=== PATIENT | male | born 1975 | race Caucasian/White ===

== ENCOUNTER 2018-07-31 09:38 | Outpatient (CLI) | payer BC, SELFPAY ==
[2018-07-31 10:13] LABS: HCT 46.3 % (40.0-50.0); HGB 15.7 g/dL (13.5-17.5)
[2018-07-31 11:23] LABS: Glucose 99 mg/dL (70-100); Potassium 4.1 mmol/L (3.5-5.1)
[2018-08-03 09:53] LABS: PSA, Screening 0.4 ng/ml (0-2.5)
== END 2018-07-31 09:58 ==
PROVIDERS: PCP General Practice; Visit Provider General Practice
DX: I10 Essential (primary) hypertension (principal); E04.9 Nontoxic goiter, unspecified; E29.1 Testicular hypofunction; Z12.5 Encounter for screening for malignant neoplasm of prostate
CPT/HCPCS: 36415; 82947; 84153; 82565; 84132; 84443; 85014; 85018

== ENCOUNTER 2019-01-04 12:35 | Outpatient (CLI) | payer BC, SELFPAY ==
[2019-01-04 14:13] LABS: Glucose 120 mg/dL (70-100)
== END 2019-01-04 12:55 ==
PROVIDERS: PCP General Practice; Visit Provider General Practice
DX: R73.03 Prediabetes (principal)
CPT/HCPCS: 36415; 82947

== ENCOUNTER 2019-03-03 08:43 | Outpatient (CLI) | payer BC, SELFPAY ==
[2019-03-03 13:13] LABS: Glucose 109 mg/dL (74-106)
== END 2019-03-03 09:03 ==
PROVIDERS: PCP General Practice; Visit Provider General Practice
DX: R73.03 Prediabetes (principal)
CPT/HCPCS: 36415; 82947

== ENCOUNTER 2019-05-02 16:23 | Emergency (ER) | payer BC, SELFPAY ==
[2019-05-02] VITALS (53 sets, daily range): BP systolic 111–134; BP diastolic 61–68; PULSE 97–119; RESP 16–18; TEMP 37.3–38.1; O2SAT 85–99
--- NOTE | 2019-05-02 16:46 | W.ED.GENAD ---
Discharge Plan Disposition Patient Disposition: [facility] Condition: Serious Discharge Details Chief Complaint: DentalOral Clinical Impression: Shakir's angina Primary Care Provider: Marvin Leyva ED Provider: Emory Wu Home Meds and New Rx's Prescriptions: No Action testosterone cypionate 200 mg/mL kit 200 mg IM Q2W RF: 0 hydrochlorothiazide 25 mg tablet 25 mg PO DAILY RF: 0 lisinopril 40 mg tablet 40 mg PO DAILY RF: 0 atenolol 25 mg tablet 25 mg PO DAILY RF: 0 Medical Decision Making 44-year-old male with a history of hypertension for which he takes lisinopril, atenolol, hydrochlorothiazide. He presents the ER complaining of 2 days of the sub-lingual and submental swelling that is now caused him to have difficulty in fully opening his mouth. He is febrile, mildly tachycardic with a pulse of 120, normal blood pressure. He has soft tissue fullness and edema of the sublingual and submandibular tissues. Concerning for submandibular/hypopharynx space infection including Shakir's angina. IV placed, blood cultures obtained, screening labs obtained, patient given Unasyn, referred for imaging. He does take an CELINA inhibitor and while the presentation seems more consistent with infection, patient also given Solu-Medrol as angioedema is within the differential diagnosis. Patient given fluid bolus and placed on maintenance fluids. He is given acetaminophen IV. Patient's lactate is somewhat elevated at 2.1, white blood cell count is elevated at 17 with left shift present. Chemistries noted sodium 131, potassium 3.7, chloride 93., BUN 18, creatinine 0.9 CT scan shows right mandibular periapical lucency and adjacent 2.1 x 8 cm phlegmon. There is fat stranding of the bilateral submandibular subcutaneous tissues and edema of the submandibular spaces. There is nonspecific asymmetric soft tissue thickening of the right epiglottis. See formal report. I discussed the case with Dr. Kasper of otolaryngology and Dr. Darnell of emergency medicine at [facility]. Patient will be accepted in transfer for urgent evaluation in the emergency department. Patient is protecting his airway and controlling secretions. Do not feel he requires intubation prior to transfer. Discussed indications for transfer with the patient and he is in agreement. Lab Data Lab results reviewed: Yes I reviewed the patient's lab results. Labs: Laboratory Results - last 24 hr 05/02/19 05/02/19 05/02/19 17:00 17:00 17:00 WBC 17.60 H RBC 4.31 L Hgb 14.1 Hct 40.1 MCV 93.0 MCH 32.7 MCHC 35.2 RDW 12.0 Plt Count 282 MPV 8.8 Immature Gran % 0.2 Neutrophils % 81.8 Lymphocytes % 7.7 Monocytes % 10.2 Eosinophils % 0.0 Basophils % 0.1 Absolute Neutrophils 14.40 H Absolute Lymphocytes 1.36 Absolute Monocytes 1.80 H Absolute Eosinophils 0.00 Absolute Basophils 0.02 Differential Comment Agrees w/ instrument RBC Morphology Normal Sodium 131 L Potassium 3.7 Chloride 93 L Carbon Dioxide 27.7 Anion Gap 10.3 BUN 18 Creatinine 0.94 Estimated GFR/1.73 m2 >= 60.00 Glucose 151 H Lactate 2.1 H* Calcium 9.2 Total Bilirubin 1.7 H AST 18 ALT 30 Alkaline Phosphatase 51 Total Protein 8.2 Albumin 3.6 HPI General Mode of arrival: ambulatory. Date/Time Provider Initiated Documentation: 05/02/19 16:24. Limitations to Documentation: no limitations. Information obtained by: patient. History of Present Illness 44 year old M presents to the emergency department with the chief complaint of Sublingual and neck swelling over 2 days, described as moderate, and is localized to the mouth and neck. Patient reports no radiation. Patient started experiencing this day(s) and it has been constant. No relieving factors improve symptom(s), No exacerbating factors reported . Patient notes other (Difficulty opening mouth); denies chest pain and shortness of breath. Patient did receive the following treatments prior to arrival, none Related Data Home Medications Medication Instructions Recorded Confirmed atenolol 25 mg tablet 25 mg PO DAILY 04/30/19 05/02/19 hydrochlorothiazide 25 mg tablet 25 mg PO DAILY 04/30/19 05/02/19 lisinopril 40 mg tablet 40 mg PO DAILY 04/30/19 05/02/19 testosterone cypionate 200 mg/mL 200 mg IM Q2W 04/30/19 05/02/19 intramuscular kit Allergies Allergy/AdvReac Type Severity Reaction Status Date / Time Fish Containing Products Allergy Intermediate Itching Unverified 05/02/19 16:33 General Stated Complaint: DentalOral LIVIA: 2 Review of Systems Narrative: No change to medications. States he has been taking CELINA inhibitor for years. No fever, denies dental pain. 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 Pleasant, well groomed, interactive. HEAD: Normocephalic, atraumatic ENT: Mucous membranes moist, oropharynx with sublingual edema, there is edema of the neck and submental area, External ear exam unremarkable. Patient has a bianchi EYES: PERRL, EOMI NECK: Full ROM, no MICHAEL, no menigismus CHEST/RESP: Nontender, clear to auscultation bilateral, no wheeze/rhonchi/rales CARDIOVASCULAR: Tachycardic, regular, no murmur, rub rob. 2+ Rad pulse bilateral ABDOMEN: Soft, nontender, no mass. +Bowel sounds EXT: Full ROM, no edema, no rash Neuro: Grossly normal neurologic exam, conversant, interactive. Psych: Speech fluent, thoughts congruent, affect normal Course Vital Signs Vital signs: Vital Signs Temperature 37.3 C 05/02/19 16:28 Pulse 119 H 05/02/19 16:28 Respiratory Rate 18 05/02/19 16:28 Blood Pressure 134/61 05/02/19 16:28 Pulse Oximetry 99 05/02/19 16:28 Temperature 37.3 C 05/02/19 16:28 Temperature Source Temporal Artery Scan 05/02/19 16:28 Pulse 119 H 05/02/19 16:28 Respiratory Rate 18 05/02/19 16:28 Respiratory Effort Non-Labored 05/02/19 16:32 Blood Pressure 134/61 05/02/19 16:28 Blood Pressure Position Sitting 05/02/19 16:28 Pulse Oximetry 99 05/02/19 16:28 Oxygen Delivery Method Room Air 05/02/19 16:28 Oxygen Flow Rate 0 05/02/19 16:28
[2019-05-02] MEDS: methylPREDNISolone SUCC 125 MG VIAL IVP (17:00)
[2019-05-02 17:13] LABS: Abs Immature Grans 0.04 k/cumm (0.0-0.09); Absolute Lymphocyte Count 1.36 k/cumm (1.2-3.4); Basophils % 0.1; HCT 40.1 % (40.0-50.0); HGB 14.1 g/dL (13.5-17.5); Immature Grans % 0.2 %; Lactate 2.1 mmol/L (0.6-1.4); Lymphocytes % 7.7; Mean Corp. HGB Concentration 35.2 g/dL (32.0-36.0); Mean Corpuscular Hemoglobin 32.7 pg (27.0-33.0); Mean Platelet Volume 8.8 fL (8.0-11.0); Monocytes % 10.2; Platelet Count 282 x1000/uL (130-400); RBC 4.31 m/cumm (4.50-6.00)
[2019-05-02 17:14] LABS: Absolute Basophil Count 0.02 k/cumm (0.0-0.2)
[2019-05-02 17:31] LABS: ALT 30 U/L (16-63); AST 18 U/L (15-37); Albumin 3.6 g/dL (3.4-5.0); Alkaline Phosphatase 51 U/L (46-116); Anion Gap 10.3 mmol/L (3-11); BUN 18 mg/dL (7-18); Bilirubin, Total 1.7 mg/dL (0.2-1.0); CO2 27.7 mmol/L (21.0-32.0); CREATININE 0.94 mg/dL (0.70-1.30); Calcium 9.2 mg/dL (8.5-10.1); Chloride 93 mmol/L (98-107); Glucose 151 mg/dL (74-106); Potassium 3.7 mmol/L (3.5-5.1); Sodium 131 mmol/L (136-145); Total Protein 8.2 g/dL (6.4-8.2)
[2019-05-02] MEDS: AMPICILLIN/SULBACTAM 3 GM in Normal Saline 100 ML IVPB (17:31)
[2019-05-02] MEDS: Normal Saline 1,000 ML 1000 ML IV (17:32)
--- NOTE | 2019-05-02 17:41 | DI.CT_ITS ---
EXAM: CT NECK W CLINICAL HISTORY: SUBLINGUAL AND NECK SWELLING TECHNIQUE: Post IV contrast COMPARISON: No exams were available for comparison FINDINGS: There is artifact related to dental work. There is mucous retention at the floors of both maxillary sinuses and within several ethmoid sinuses. The mastoid air cells appear clear. The orbits are unre markable where visualized. Parotid glands are unremarkable. There is diffuse edema in the subcutane ous fat in the submandibular region bilaterally. The right submandibular gland appears mildly enlarg ed and edematous compared to the left. There is soft tissue edema seen in the adjacent musculature. There is a lucency surrounding a molar tooth in the right mandible with an adjacent small abscess me asuring 2 cm in greatest dimension. There are reactive lymph nodes. There is thickening of the righ t aryepiglottic fold. There is mild thickening of the epiglottis. Degenerative changes are seen in the spine. IMPRESSION: Abscess involving the posterior right mandibular molar tooth with an adjacent soft tissue abscess radha suring 2 cm in greatest dimension. Reactive lymph nodes and soft tissue edema are present. There is asymmetric thickening of the right aryepiglottic fold.
[2019-05-02 17:44] LABS: Diff Comment Agrees w/ Instrument; Neutrophils % 81.8; RBC Morphology Normal
[2019-05-02] MEDS: Omnipaque 350 MG/ML 100 ML BTL IJ (17:47)
--- NOTE | 2019-05-02 18:17 | DI.VRAD_ITS ---
PROCEDURE INFORMATION: Exam: CT Neck With Contrast Exam date and time: 05/02/2019 5:38 PM Age: 44 years old Clinical indication: Mass, lump, or swelling in neck TECHNIQUE: Imaging protocol: Computed tomography images of the neck with intravenous contrast. COMPARISON: No relevant prior studies available. FINDINGS: Brain: There is a pulmonary parenchymal calcification consistent with remote granulomatous organism exposure. Limited views of the brain are unremarkable. There is mild local mass effect without airway compromise. Sinuses: No organized fluid collection. No significant associated. Bilateral maxillary sinus mucosal thickening. Partial opacification of the ethmoid air cells Nasopharynx: Unremarkable. Oropharynx: Unremarkable. No significant tonsillar enlargement. Hypopharynx/larynx: Nonspecific soft tissue thickening along the right aspect of the epiglottis and extending inferior/posteriorly along the right styloid pharynges muscle without discrete lesion. Retropharyngeal space: Unremarkable. Submandibular/Parotid glands: Nonspecific fat stranding about the bilateral submandibular subcutaneous tissues extending inferiorly along the midline to about the level of the thyroid with trace edema in the bilateral submandibular spaces. Slight asymmetric enlargement of the right submandibular gland is likely reactive. Thyroid: The thyroid gland is normal. Lymph nodes: Scattered bilateral mildly enlarged lymph nodes are likely reactive. Trachea: Visualized trachea is unremarkable. Lungs: Unremarkable as visualized. Dental: Right mandibular molar periapical lucency with medial cortical thinning an adjacent 2.1 x 0.8 cm fluid collection with at least partial peripheral enhancement. Bones/joints: Unremarkable. No acute fracture. Soft tissues: IMPRESSION: 1. Right mandibular periapical lucency with cortical thinning and adjacent 2.1 x 0.8 cm periodontal phlegmon versus developing abscess. 2. Fat stranding about the bilateral submandibular subcutaneous tissues and trace edema in the bilateral submandibular spaces may represent sequela of infection/cellulitis. No organized fluid collection. 3. Nonspecific asymmetric soft tissue thickening the right epiglottis without CT evidence of a discrete lesion. The finding may be related to acute infection, however recommend further evaluation with direct visualization or follow-up imaging after treatment to ensure resolution. Findings discussed with JASON CAPELLAN MD. by Kyrie Winkler MD. of radiology at 05/02/2019 6:15 PM EST Dictated and Authenticated by: Kyrie Winkler MD. Ordering:SIDDHARTH Cat MD
[2019-05-02] MEDS: ACETAMINOPHEN 1,000 MG/100 ML BTL 400 MG IVPB (18:26)
[2019-05-02] MEDS: Normal Saline 1,000 ML 150 ML IV (18:29)
--- NOTE | 2019-05-06 19:46 | ED.FU.B_ITS ---
This evening I received blood culture that was verified 05/04/2019, anaerobic bottle positive, Gram stain shows gram-positive cocci. I called [facility] [place] [place] and spoke with Dr. Grande, on-call ENT, discussed blood culture result, he knew the patient well and reviewed medical record and noted that patient has been treated with IV antibiotic and then transition to oral antibiotic after significant improvement. He does not believe positive culture will private branch exchange service adviser at this time but will reach out to the patient and ensure follow-up.
--- NOTE | 2019-06-15 09:11 | NUR.NOTE ---
Patient transferred treated and discharge prior to final blood culture result. Result faxed to [facility] scanning, and to [facility] beck Leyva. Nursing Note:
== END 2019-05-02 19:35 | disposition short-term general hospital (02) ==
PROVIDERS: Emergency Provider Emergency Medicine; PCP Family Medicine
DX: R50.9 Fever, unspecified (principal); R60.0 Localized edema; R93.0 Abnormal findings on diagnostic imaging of skull and head, not elsewhere classified; K12.2 Cellulitis and abscess of mouth; I10 Essential (primary) hypertension
CPT/HCPCS: 36415; 70491; 80053; 87040; 87077; 96361; 96365; 96366; 96375; 99285; 83605; 85025; J0131; J0295; J2930; J3490

== ENCOUNTER 2019-06-01 09:07 | Outpatient (CLI) | payer BC, SELFPAY ==
[2019-06-01 10:37] LABS: ALT 43 U/L (16-63); AST 22 U/L (15-37); Albumin 3.7 g/dL (3.4-5.0); Alkaline Phosphatase 58 U/L (46-116); Anion Gap 7.8 mmol/L (3-11); BUN 9 mg/dL (7-18); Bilirubin, Total 0.8 mg/dL (0.2-1.0); CO2 29.2 mmol/L (21.0-32.0); CREATININE 0.73 mg/dL (0.70-1.30); Calcium 8.7 mg/dL (8.5-10.1); Calculated LDL 83 mg/dL (<100); Chloride 102 mmol/L (98-107); Cholesterol 175 mg/dL (<200); Glucose 99 mg/dL (74-106); HDL Cholesterol 42 mg/dL (40-60); Sodium 139 mmol/L (136-145); Total Protein 6.9 g/dL (6.4-8.2); Triglyceride 252 mg/dL (<150)
== END 2019-06-01 09:27 ==
PROVIDERS: PCP Family Medicine; Visit Provider Family Medicine
DX: E87.1 Hypo-osmolality and hyponatremia (principal); Z13.220 Encounter for screening for lipoid disorders
CPT/HCPCS: 36415; 80053; 80061

== ENCOUNTER 2020-10-18 13:07 | Emergency (ER) | payer BC, SELFPAY ==
[2020-10-18 13:38] VITALS: BP 135/72; PULSE 77; RESP 16; TEMP 36.2; O2SAT 98
--- NOTE | 2020-10-18 14:34 | ED.GENADUL_ITS ---
Discharge Plan Disposition Patient Disposition: HOME Condition: Good Discharge Details Clinical Impression: Upper respiratory infection Primary Care Provider: Marvin Leyva ED Provider: Zhane Haas Home Meds and New Rx's Prescriptions: New albuterol sulfate 90 mcg/actuation HFA aerosol inhaler 2 puff inhalation 6XD PRNQty: 6.7 RF: 0 Continued hydrochlorothiazide 25 mg tablet 25 mg PO DAILY Qty: 90 RF: 3 lisinopril 40 mg tablet 40 mg PO DAILY Qty: 90 RF: 3 testosterone cypionate 200 mg/mL oil 100 mg IM Q2W Qty: 10 RF: 5 atenolol 25 mg tablet 25 mg PO DAILY Qty: 90 RF: 3 Discharge Instructions Instructions: Upper Respiratory Infection (ED) Additional Instructions: Use your inhaler, 2 puffs every 4-6 hours as needed for cough Robitussin as needed for cough Please follow-up with your doctor in 48 hours Your Covid test should return within the next 36 hours, should you have worsening shortness of breath, fever, chills, or with any new or progressing symptoms, I recommend you return Isolate until results of your Covid test return Stand Alone Forms: PENDING COVID-19 TESTING, Work Release Discharge Data Discharge Date/Time-TO BE ENTERED AT DEPARTURE: 10/18/20 14:37 Medical Decision Making No clinical signs or symptoms consistent with pneumonia, no indication for chest x-ray oxygenation 98% on room air, respirations 16, no fever noted Covid test pending, will isolate Discussed onset of Covid vaccine and encouraged patient to follow-up with PCP Work note supplied Effect upper respiratory infection based clinical exam findings, likely viral at time of my evaluation Supportive care recommended Return precautions discussed patient expressed understanding, with shortness of breath, wheezing, or fever should arise HPI General Mode of arrival: ambulatory . Date/Time Provider Initiated Documentation: 10/18/20 13:55 . Limitations to Documentation: no limitations . Information obtained by: patient . HPI Narrative: This 45-year-old gentleman with history of hypertension presents with report of cough and runny nose. He denies any shortness of breath, wheezing, fever, myalgias, hemoptysis. He states his cough is dry. He states he has had symptoms for the past 2 days. He does not have a Covid vaccine. She denies known sick contacts. He denies any nausea or vomiting. He denies any chest discomfort. He presents because he is supposed to present to work this evening. Denies history of asthma or COPD. Related Data Home Medications Medication Instructions Recorded Confirmed atenolol 25 mg tablet 25 mg PO DAILY #90 tab 07/17/20 10/18/20 hydrochlorothiazide 25 mg tablet 25 mg PO DAILY #90 tab 10/03/20 10/18/20 lisinopril 40 mg tablet 40 mg PO DAILY #90 tab 10/03/20 10/18/20 testosterone cypionate 200 mg/mL 100 mg IM Q2W #10 ml 10/03/20 10/18/20 intramuscular oil albuterol sulfate 2 puff INHALATION 6XD PRN #6.7 g 10/18/20 Previous Rx's Medication Instructions Recorded atenolol 25 mg tablet 25 mg PO DAILY #90 tab 07/17/20 hydrochlorothiazide 25 mg tablet 25 mg PO DAILY #90 tab 10/03/20 lisinopril 40 mg tablet 40 mg PO DAILY #90 tab 10/03/20 testosterone cypionate 200 mg/mL 100 mg IM Q2W #10 ml 10/03/20 intramuscular oil albuterol sulfate 2 puff INHALATION 6XD PRN #6.7 g 10/18/20 Allergies Allergy/AdvReac Type Severity Reaction Status Date / Time Fish Containing Products Allergy Intermediate Itching Verified 10/18/20 13:41 diet sodas AdvReac Mild dry mouth Uncoded 10/18/20 13:41 General Stated Complaint: RespSymp LIVIA: 4 Review of Systems All systems reviewed & are unremarkable except as noted in HPI and below PFSH Medical History (Updated 10/18/20 @ 14:20 by RENEE Roberts) Hypertension [place]ir's [place] [facility] [place]IV abx and tooth extraction) Primary hypogonadism in male Family History (Updated 03/14/20 @ 15:17 by Lyntete Gleason RN) Father Lung cancer Bone cancer Mother Diabetes Hypertension Maternal Grandmother Lung cancer Paternal Grandfather Hypertension Maternal Grandfather Hypertension Uncle Alcohol abuse 2 uncles (ETOH or drug problem) reported by pt 03/14/20 EO Social History (Updated 03/14/20 @ 15:12 by Lynette Gleason RN) Smoking/Tobacco Use Status: Never Second Hand Exposure: No Smoking risk assessment performed?: Yes Alcohol Intake: never Drug use: Never Substance use type: does not use Adopted: No Caregiver/Support person: No Foster care: No Household members: family Housing: house Communication Needs: None Do you need help understanding health information?: Never 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, [employer] Pets and animals: Yes Pets and animals: cat(s) Sexually active: No Do you think of yourself as: straight/heterosexual Current gender identity: male What is your relationship status?: never How often do you talk on the phone with friends or family?: never How often do you get together with friends or relatives?: never How often do you attend worship or gnosticist services?: decline to answer Do you belong to any clubs or organized social groups?: no Panel score (0-1 are the most socially isolated patients): 0 What type of physical activity do you participate in: none Duration: decline to answer Frequency: decline to answer Holly/Samaritan: Mormon Special holly needs: No Seatbelt use: always Helmet use: No Drive intox or ride w/intox restaurant delivery driver: No Water heater temp set <120 deg: Yes Working smoke detector in home: Yes Fire extinguisher in home: Yes Carbon monox detector in home: Yes Firearms in home: No Do you feel safe at home: Yes Do you feel safe in your relationship?: Yes Exam Const General: cooperative, healthy appearing and no acute distress HENMT Other: boggy nasal mucosa Resp Effort & Inspection: normal respiratory effort Auscultation: clear to auscultation bilaterally Cardio Rate: regular rate Rhythm: regular rhythm Skin General skin exam: no rashes or lesions noted Neuro General: patient alert and patient oriented x3 Psych Appearance: grossly normal Course Vital Signs Vital signs: Vital Signs Temperature 36.2 C L 10/18/20 13:38 Pulse 77 10/18/20 13:38 Respiratory Rate 16 10/18/20 13:38 Blood Pressure 135/72 10/18/20 13:38 Pulse Oximetry 98 10/18/20 13:38 Temperature 36.2 C L 10/18/20 13:38 Temperature Source Skin 10/18/20 13:38 Pulse 77 10/18/20 13:38 Respiratory Rate 16 10/18/20 13:38 Respiratory Effort Non-Labored 10/18/20 13:42 Blood Pressure 135/72 10/18/20 13:38 Blood Pressure Position Sitting 10/18/20 13:38 Pulse Oximetry 98 10/18/20 13:38 Oxygen Delivery Method Room Air 10/18/20 13:38 Oxygen Flow Rate 0 10/18/20 13:38 Pain Level 1 10/18/20 14:31 Lab/Test Results Lab/Test Results: 10/18/20 13:50 Pharynx Group A Streptococcus Culture - Pending POC Strep Test-DANIELA(Rapid) Start: 10/18/20 13:53 Freq: .Rapid Strep Test Status: Active Protocol: Document 10/18/20 14:10 MMQ (Rec: 10/18/20 14:10 MMQ [id number]) Strep test-DANIELA(Rapid)-POC POC-Strep test-DANIELA (Rapid) Negative POC-Strep test-DANIELA (Rapid) Negative
[2020-10-20 11:47] LABS: COVID-19 RT-PCR UVMMC Result Negative (Negative)
== END 2020-10-18 14:37 | disposition home or self-care (01) ==
PROVIDERS: Emergency Provider Physician Assistant; PCP Family Medicine
DX: J06.9 Acute upper respiratory infection, unspecified (principal); Z20.822 Contact with and (suspected) exposure to COVID-19
CPT/HCPCS: 87880; 99283; U0003; 87081

== ENCOUNTER 2022-11-19 13:43 | Outpatient (CLI) | payer BC, SELFPAY ==
--- NOTE | 2022-11-19 13:15 | DI.RAD_ITS ---
Exam(s) XR KNEE LT 3V AP,LAT,JORDAN EXAM: XR KNEE LT 3V AP,LAT,JORDAN CLINICAL HISTORY: BILATERAL KNEE PAIN. TECHNIQUE: 2D digital imaging was performed. Three views. COMPARISON: CR XR KNEE RT 3V AP,LAT,JORDAN from 11/19/2022 FINDINGS: BONES: No acute fracture is present. No bony destructive lesion is seen. JOINTS: The knee is normally aligned. No joint effusion is seen. SOFT TISSUE: Normal. IMPRESSION: Normal radiographs of the left knee. DATA REPOSITORY: RADIATION DOSE DELIVERED:
--- NOTE | 2022-11-19 13:15 | DI.RAD_ITS ---
Exam(s) XR KNEE RT 3V AP,LAT,JORDAN EXAM: XR KNEE RT 3V AP,LAT,JORDAN CLINICAL HISTORY: BILATERAL KNEE PAIN. TECHNIQUE: 2D digital imaging was performed. Three views. COMPARISON: CR XR KNEE LT 3V AP,LAT,JORDAN from 11/19/2022 FINDINGS: BONES: No acute fracture is present. No bony destructive lesion is seen. JOINTS: The knee is normally aligned. No joint effusion is seen. The joint spaces are maintained. No significant degenerative changes. SOFT TISSUE: Normal. IMPRESSION: Unremarkable radiographs of the right knee. DATA REPOSITORY: RADIATION DOSE DELIVERED:
== END 2022-11-19 13:44 | disposition home or self-care (01) ==
LOC: DIORS 13:43
PROVIDERS: PCP Family Medicine; Referring Provider Family Medicine; Visit Provider Student in an Organized Health Care Education/Training Program
DX: M25.561 Pain in right knee (principal); M25.562 Pain in left knee
CPT/HCPCS: 73562

== ENCOUNTER → 2023-03-17 02:23 | Outpatient (CLI) | payer BC, SELFPAY ==
--- NOTE | 2023-03-17 07:45 | DI.MRI_ITS ---
Exam(s) MR LOWER JOINT RT WO EXAM: MR LOWER JOINT RT WO CLINICAL HISTORY: ? meniscus tear, rt knee prepatellar bursitis, m70.41. TECHNIQUE: Multiplanar multisequence MRI was performed. COMPARISON: CR XR KNEE RT 3V AP,LAT,JORDAN from 11/19/2022 FINDINGS: BONES: There is no fracture or contusion pattern. JOINTS: A small joint effusion is present. Articular cartilage: Patellofemoral joint: Cartilage irregularity and thinning involving the lateral patellar facet which extends down to bone. There is small amount of high signal in the underlying b one. Medial femoral tibial joint: Articular cartilage is unremarkable. Lateral femoral tibial joint: Articular cartilage is unremarkable. TENDONS: Extensor mechanism: Unremarkable. Medial retinaculum: Unremarkable. Lateral retinaculum: Unremarkable. Popliteus: Unremarkable. MUSCLES: Unremarkable. MENISCI: The medial meniscus is unremarkable. The lateral meniscus is unremarkable. SOFT TISSUES: Anterior soft tissue edema. LIGAMENTS: Anterior Cruciate: Unremarkable. Posterior Cruciate: Unremarkable. Medial Collateral:Unremarkable. Lateral Collateral: Unremarkable. IMPRESSION: Chondromalacia of the lateral patellar facet. Small joint effusion. No evidence of ligament or meniscal tear. DATA REPOSITORY:
== END ==
PROVIDERS: PCP Family Medicine; Visit Provider Student in an Organized Health Care Education/Training Program
DX: M22.41 Chondromalacia patellae, right knee
CPT/HCPCS: 73721

== ENCOUNTER → 2023-07-07 02:40 | Outpatient (CLI) | payer BC, SELFPAY ==
--- NOTE | 2023-07-07 07:45 | DI.MRI_ITS ---
Exam(s) MR LOWER JOINT LT WO EXAM: MR LOWER JOINT LT WO CLINICAL HISTORY: lt knee pain, ?tear medial meniscus lt knee,S83.242a. TECHNIQUE: Multiplanar multisequence MRI was performed. COMPARISON: CR XR KNEE LT 3V AP,LAT,JORDAN from 11/19/2022 FINDINGS: BONES: There is no fracture or contusion pattern. JOINTS: There is a small focus of hyperintense signal in the medial aspect of the articular cartilage overlying the lateral tibial plateau with subchondral edema and cyst. There is mild thinning of the articular cartilage in the inferior medial aspect of the patellar facet. No effusion is present. TENDONS: Extensor mechanism: Unremarkable. Medial retinaculum: Unremarkable. Lateral retinaculum: Unremarkable. Popliteus: Unremarkable. MUSCLES: Unremarkable. MENISCI: There is a ridge of intermediate signal tissue lateral and anterior to the anterior cruciate ligament insertion site onto the tibial spine. (Series [id number], image 18). It measures 1 x 0.6 cm. It appears to be separate from the meniscus. The lateral meniscus is unremarkable. SOFT TISSUES: Unremarkable. LIGAMENTS: Anterior Cruciate: Unremarkable. Posterior Cruciate: Unremarkable. Medial Collateral:Unremarkable. Lateral Collateral: Unremarkable. OTHER: IMPRESSION: 1. 1 x 0.6 cm intermediate signal tissue lateral and anterior to the ACL insertion site. This is nons pecific. Differential considerations include area of fibrosis, loose body, partial ACL tear or menisc al tear material. 2. No other evidence of a ligament or tendon tear. 3. Mild degenerative changes seen in the knee. DATA REPOSITORY:
== END ==
PROVIDERS: PCP Family Medicine; Visit Provider Student in an Organized Health Care Education/Training Program
DX: S83.242A Other tear of medial meniscus, current injury, left knee, initial encounter (principal)
CPT/HCPCS: 73721

== ENCOUNTER 2024-08-16 12:42 | Outpatient (CLI) | payer BC, SELFPAY ==
[2024-08-16 09:54] LABS: ALT 43 U/L (16-63); AST 25 U/L (15-37); Albumin 3.9 g/dL (3.4-5.0); Alkaline Phosphatase 63 U/L (46-116); Anion Gap 4.1 mmol/L (3-11); BUN 10 mg/dL (7-18); Bilirubin, Total 0.8 mg/dL (0.2-1.0); CO2 31.9 mmol/L (21.0-32.0); CREATININE 0.8 mg/dL (0.70-1.30); Calcium 9.3 mg/dL (8.5-10.1); Chloride 100 mmol/L (98-107); Estimated GFR 108.49 (mL/min/1.73m2); Glucose 182 mg/dL (74-106); Potassium 4.2 mmol/L (3.5-5.1); Sodium 136 mmol/L (136-145); Total Protein 7.1 g/dL (6.4-8.2)
[2024-08-17 18:36] LABS: Calculated LDL 112 mg/dL (<100); Cholesterol 208 mg/dL (<200); HDL Cholesterol 48 mg/dL (>or=40); Triglyceride 241 mg/dL (<150)
[2024-08-27 11:01] LABS: Testosterone, Free 57.9 ng/dL (4.26-16.4); Testosterone, Total 1430 ng/dL (240-950)
== END 2024-08-16 12:43 | disposition home or self-care (01) ==
LOC: LBO 12:43
PROVIDERS: PCP Family Medicine; Visit Provider Family Medicine
DX: E29.1 Testicular hypofunction (principal); I10 Essential (primary) hypertension
CPT/HCPCS: 36415; 80053; 80061; 84402; 84403